=== PATIENT | male | born 1935 ===

== ENCOUNTER 2017-12-29 16:52 | Inpatient (IN) | payer MEDICARE ==
[2017-12-29 16:52] VITALS: BMI 27.4
[2017-12-29] MEDS ORDERED: Albuterol-Ipratrop 3 mg / 0.5 (3 ml) UD INH STA ×2 (17:27→17:32)
[2017-12-29] MEDS ORDERED: Sodium Chloride 0.9% 1,000 ML IV ONE (17:30)
[2017-12-29] MEDS ORDERED: Albuterol-Ipratrop 3 mg / 0.5 (3 ml) UD IH STA (17:32)
--- NOTE | 2017-12-29 17:35 | ED PDOC ---
HPI: SOB/CHF/COPD Time Seen by Provider: 12/29/17 17:08 Chief Complaint (Nursing): Shortness Of Breath Chief Complaint (Provider): Cough History Per: Patient, Family History/Exam Limitations: no limitations Onset/Duration Of Symptoms: Days (2) Current Symptoms Are (Timing): Still Present Additional Complaint(s): Pt. with cough, nasal congestion, runny nose, weakness all over. Dyspnea. Seen by clinic not around here and given zpak and inhaler. No improvement so came to the ED. Pt. with no nausea, vomit, diarrhea. No abd pain. Has increased urination. No burning. No chest pain. Past Medical History Vital Signs: Last Vital Signs Temp 100.8 F H 12/29/17 16:58 Pulse 107 H 12/29/17 16:58 Resp 22 12/29/17 16:58 BP 149/93 H 12/29/17 16:58 Pulse Ox 100 12/29/17 17:36 - Medical History PMH: Anxiety, CVA, Depression, HTN, Hypercholesterolemia - Family History Family History: States: Unknown Family Hx - Home Medications Home Medications: Ambulatory Orders Medication Instructions Recorded Albuterol Sulfate [Albuterol 3 ml IH Q4H PRN 12/29/17 Sulfate] Aspirin [Ecotrin] 81 mg PO DAILY 12/29/17 Azithromycin [Zithromax] 250 mg PO ASDIR 12/29/17 Cyanocobalamin [Vitamin B12 1000 1,000 mcg IM Q30D 12/29/17 mcg/ml Inj] Lisinopril/Hydrochlorothiazide 1 tab PO DAILY 12/29/17 [Lisinopril-Hctz 20-25 mg Tab] PARoxetine [Paxil] 20 mg PO DAILY 12/29/17 Simvastatin [Zocor] 40 mg PO HS 12/29/17 diltiaZEM CD [Cardizem CD] 300 mg PO DAILY 12/29/17 - Allergies Allergies/Adverse Reactions: Allergies Allergy/AdvReac Type Severity Reaction Status Date / Time No Known Allergies Allergy Verified 12/29/17 17:03 Review of Systems ROS Statement: Except As Marked, All Systems Reviewed And Found Negative Constitutional: Positive for: Weakness ENT: Positive for: Nose Pain, Nose Discharge, Nose Congestion Respiratory: Positive for: Cough, Shortness of Breath, Wheezing Genitourinary Male: Positive for: Frequency. Negative for: Dysuria Neurological: Positive for: Weakness Physical Exam - Reviewed Nursing Documentation Reviewed: Yes Vital Signs Reviewed: Yes - Physical Exam Appears: Positive for: Uncomfortable Head Exam: Positive for: ATRAUMATIC, NORMAL INSPECTION, NORMOCEPHALIC Skin: Positive for: Normal Color, Warm, DRY Eye Exam: Positive for: EOMI, Normal appearance, PERRL ENT: Positive for: Nasal Congestion Neck: Positive for: Normal, Painless ROM, Supple Cardiovascular/Chest: Positive for: Regular Rate, Rhythm Respiratory: Positive for: Decreased Breath Sounds, Wheezing (diffuse). Negative for: Accessory Muscle Use Gastrointestinal/Abdominal: Positive for: Normal Exam, Bowel Sounds, Soft. Negative for: Tenderness Back: Positive for: Normal Inspection. Negative for: L CVA Tenderness, R CVA Tenderness Extremity: Positive for: Normal ROM. 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 Negative for: Motor/Sensory Deficits - Laboratory Results Result Diagrams: 12/29/17 17:35 12/29/17 17:35 Interpretation Of Abn Labs: 13.8 wbc, 2.9 K - ECG ECG: Positive for: Interpreted By Me, Viewed By Me ECG Rhythm: Positive for: Nonspecific Changes O2 Sat by Pulse Oximetry: 100 Pulse Ox Interpretation: Normal - Radiology X-Ray: Interpreted by Me, Viewed By Me X-Ray Interpretation: No Acute Disease - Progress ED Course And Treament: 1944: Getting better. Will need admit. Clinical pneumonia, sepsis. Spoke with Dr. Sparks. Will admit. - Critical Care Total Time (In Min): 30 Documented Critical Care: Time excludes all time spent performint seperately billable procedures Disposition - Clinical Impression Clinical Impression: Dehydration, Pneumonia, Sepsis, Hypokalemia - Patient ED Disposition Is Patient to be Admitted: Yes Counseled Patient/Family Regarding: Studies Performed, Diagnosis - Disposition Disposition Time: 19:45 Condition: FAIR - Pt Status Changed To: Hospital Disposition Of: Inpatient - Admit Certification Admit to Inpatient:: After my assessment, the patient will require hospitalization for at least two midnights. This is because of the severity of symptoms shown, intensity of services needed, and/or the medical risk in this patient being treated as an outpatient. - POA Present On Arrival: None Core Measure Indicators: Pneumonia
[2017-12-29] MEDS ORDERED: Albuterol-Ipratrop 3 mg / 0.5 (3 ml) UD ONE ×2 (17:45→18:19)
[2017-12-29 17:55] LABS: BASO # 0.1 K/uL (0.0-0.2); BASO % 0.4 % (0.0-2.0); EOS % 0.1 % (0.0-4.0); HEMOGLOBIN 14.1 g/dL (12.0-18.0); LYMPH # 1.9 K/uL (1.0-4.3); LYMPH % 13.4 % (20.0-40.0); MEAN CELL VOLUME 90.8 fl (80.0-94.0); MEAN CORPUSCULAR HEMOGLOBIN 30.1 pg (27.0-31.0); MEAN CORPUSCULAR HGB CONC 33.2 g/dL (33.0-37.0); MEAN PLATELET VOLUME 8.7 fl (7.2-11.7); MONO # 1.7 K/uL (0.0-0.8); MONO % 12.2 % (0.0-10.0); NEUT # 10.3 K/uL (1.8-7.0); NEUT % 73.9 % (50.0-75.0); NRBC % 0.2 % (0.0-0.0); RBC 4.67 Mil/uL (4.40-5.90); RED CELL DISTRIBUTION WIDTH 14.2 % (11.5-14.5); WHITE BLOOD COUNT 13.9 K/uL (4.8-10.8)
[2017-12-29 18:11] LABS: INR 1.1 (0.9-1.2); PARTIAL THROMBOPLASTIN TIME 34.3 Seconds (25.6-37.1); PROTHROMBIN TIME 11.7 Seconds (9.8-13.1)
[2017-12-29 18:23] LABS: ALB/GLOB RATIO 1.3 (1.0-2.1); ALBUMIN 3.8 g/dL (3.5-5.0); CALCIUM 8.6 mg/dL (8.4-10.2); MAGNESIUM 1.7 MG/DL (1.6-2.3)
[2017-12-29 18:32] LABS: TROPONIN I 0.028 ng/mL (0.00-0.120)
[2017-12-29 18:49] LABS: ABG ALLEN TEST YES; ARTERIAL BLOOD GAS HCO3 31.3 mmol/L (21-28); ARTERIAL BLOOD GAS O2 SAT 98.8 % (95-98); ARTERIAL BLOOD GAS PCO2 39 mm/Hg (35-45); ARTERIAL BLOOD GAS PH 7.52 (7.35-7.45); ARTERIAL BLOOD GAS PO2 69 mm/Hg (80-100)
[2017-12-29] MEDS: Potassium Chloride 20 mEq ER Tab PO SCH ×3 (19:37→20:50)
[2017-12-29] MEDS ORDERED: cefTRIAXone (Rocephin) 1 gm Inj IV ONE (19:45)
[2017-12-29] MEDS ORDERED: Potassium Chloride 20 mEq ER Tab PO ONE (19:47)
[2017-12-29] MEDS ORDERED: Magnesium Sulfate 2 gm/50 ml 0 GM/0 ML BAG ONE (19:47)
[2017-12-29] MEDS: Magnesium Sulfate 2 gm/50 ml 2 GM/50 ML BAG IV ONE ×2 (19:53→20:50)
[2017-12-29] MEDS ORDERED: Albuterol-Ipratrop 3 mg / 0.5 (3 ml) UD INH PRN (20:04)
--- NOTE | 2017-12-29 20:10 | CP.PCM.HP ---
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 Patient was sent to the hospital by his PCP Dr. England because patient refused to go to the office. In the ER, patient was mildly febrile 100.8, tachy 107, WBC appx 13K , with audible wheeze, nonproductive cough, no obvious pna on CXR. K was 2.9, this was repleted and Mg 1.7 which was repleted as well. Currently patient is on 2L NC and saturating about 95% but desaturates with speaking to 89-90. Patient to be admitted to telemetry for sepsis, secondary to clinical pneumonia , and hypokalemia. ROS: per HPI all other systems reviewed and negative PCP: Dr. England PMSH: HTN, HLD, depression, no known hx of COPD or asthma, however used to work in a very smoke heavy environment, Prostate seeding? FH: denies SH: denies tobacco, ETOH, IVDU Meds as below NKDA Present on Admission - Present on Admission Any Indicators Present on Admission: No Past Patient History - Infectious Disease Hx of Infectious Diseases: None - Past Medical History & Family History Past Medical History?: Yes - Past Social History Smoking Status: Never Smoked - CARDIAC Hx Hypercholesterolemia: Yes Hx Hypertension: Yes - NEUROLOGICAL Hx Neurological Disorder: Yes HX Cerebrovascular Accident: Yes - HEENT Hx HEENT Problems: Yes Hx Cataracts: Yes - HEMATOLOGICAL/ONCOLOGICAL Hx Blood Disorders: Yes Hx Cancer: Yes (prostate) - MUSCULOSKELETAL/RHEUMATOLOGICAL Hx Falls: No - GENITOURINARY/GYNECOLOGICAL Hx Genitourinary Disorders: Yes Hx Prostate Cancer: Yes - PSYCHIATRIC Hx Anxiety: Yes Hx Depression: Yes - SURGICAL HISTORY Hx Surgeries: Yes Hx Cataract Extraction: Yes (LEFT EYE WITH IOLI) Other/Comment: PROSTATE SEED IMPLANT - ANESTHESIA Hx Anesthesia: Yes Hx Anesthesia Reactions: No Hx Malignant Hyperthermia: No Meds Allergies/Adverse Reactions: Allergies Allergy/AdvReac Type Severity Reaction Status Date / Time No Known Allergies Allergy Verified 12/29/17 17:03 Physical Exam - Constitutional Appears: Non-toxic, No Acute Distress - Head Exam Head Exam: ATRAUMATIC, NORMOCEPHALIC - Eye Exam Eye Exam: EOMI, Normal appearance, PERRL - ENT Exam ENT Exam: Mucous Membranes Moist, Normal Oropharynx - Respiratory Exam Respiratory Exam: Wheezes, NORMAL BREATHING PATTERN. absent: Rales, Respiratory Distress, Stridor - Cardiovascular Exam Cardiovascular Exam: RRR, +S1, +S2 - GI/Abdominal Exam GI & Abdominal Exam: Normal Bowel Sounds, Soft. absent: Mass, Organomegaly, Tenderness - Extremities Exam Extremities exam: Positive for: normal capillary refill, pedal pulses present. Negative for: calf tenderness - Back Exam Back exam: absent: CVA tenderness (L), CVA tenderness (R) - Neurological Exam Neurological exam: Alert, Oriented x3 - Psychiatric Exam Psychiatric exam: Normal Affect, Normal Mood - Skin Skin Exam: Dry, Normal Color, Warm Results - Vital Signs Recent Vital Signs: Last Vital Signs Temp 100.8 F H 12/29/17 16:58 Pulse 107 H 12/29/17 16:58 Resp 22 12/29/17 16:58 BP 149/93 H 12/29/17 16:58 Pulse Ox 100 12/29/17 19:46 - Labs Result Diagrams: 12/29/17 17:35 12/29/17 17:35 Labs: Laboratory Results - last 24 hr 12/29/17 12/29/17 12/29/17 17:35 17:35 17:35 WBC 13.9 H RBC 4.67 Hgb 14.1 Hct 42.4 MCV 90.8 MCH 30.1 MCHC 33.2 RDW 14.2 Plt Count 187 MPV 8.7 Neut % (Auto) 73.9 Lymph % (Auto) 13.4 L Otoe % (Auto) 12.2 H Eos % (Auto) 0.1 Baso % (Auto) 0.4 Neut # (Auto) 10.3 H Lymph # (Auto) 1.9 Otoe # (Auto) 1.7 H Eos # (Auto) 0.0 Baso # (Auto) 0.1 PT 11.7 INR 1.1 APTT 34.3 pCO2 pO2 HCO3 ABG pH ABG Total CO2 ABG O2 Saturation ABG Base Excess Yobani Test ABG Potassium A-a O2 Difference Glucose Lactate FiO2 Sodium 140 Potassium 2.9 L Chloride 99 Carbon Dioxide 32 H Anion Gap 12 BUN 26 H Creatinine 1.5 Est GFR ( Amer) 54 Est GFR (Non-Af Amer) 45 Random Glucose 126 H Calcium 8.6 Phosphorus 2.7 Magnesium 1.7 Total Bilirubin 0.6 AST 44 ALT 38 Alkaline Phosphatase 77 Troponin I 0.0280 NT-Pro-B Natriuret Pep 331 Total Protein 6.6 Albumin 3.8 Globulin 2.8 Albumin/Globulin Ratio 1.3 Arterial Blood Potassium Influenza Typ A,B (EIA) 12/29/17 12/29/17 17:35 18:40 WBC RBC Hgb Hct MCV MCH MCHC RDW Plt Count MPV Neut % (Auto) Lymph % (Auto) Otoe % (Auto) Eos % (Auto) Baso % (Auto) Neut # (Auto) Lymph # (Auto) Otoe # (Auto) Eos # (Auto) Baso # (Auto) PT INR APTT pCO2 39 pO2 69 L HCO3 31.3 H ABG pH 7.52 H ABG Total CO2 33.0 H ABG O2 Saturation 98.8 H ABG Base Excess 8.3 H Yobani Test Yes ABG Potassium 2.8 L A-a O2 Difference 139.0 Glucose 140 H Lactate 0.8 FiO2 36.0 Sodium 138.0 Potassium Chloride 100.0 Carbon Dioxide Anion Gap BUN Creatinine Est GFR ( Amer) Est GFR (Non-Af Amer) Random Glucose Calcium Phosphorus Magnesium Total Bilirubin AST ALT Alkaline Phosphatase Troponin I NT-Pro-B Natriuret Pep Total Protein Albumin Globulin Albumin/Globulin Ratio Arterial Blood Potassium 2.8 L Influenza Typ A,B (EIA) Negative for flu a/b Assessment & Plan - Assessment and Plan (Free Text) Plan: 82M PMH HTN, HLD, depression, no known hx of COPD or asthma, however 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 Patient was sent to the hospital by his PCP Dr. England because patient refused to go to the office. In the ER, patient was mildly febrile 100.8, tachy 107, WBC appx 13K , with audible wheeze, nonproductive cough, no obvious pna on CXR. K was 2.9, this was repleted and Mg 1.7 which was repleted as well. Currently patient is on 2L NC and saturating about 95% but desaturates with speaking to 89-90. Patient to be admitted to telemetry for sepsis, secondary to clinical pneumonia , and hypokalemia. Sepsis Clinical Pneumonia VS. Bronchitis with mild respiratory insufficiency patient presented with dyspnea, cough, mild fever, tachy 107, WBC 13K on 2L NC saturating 95% monitor closely continue bronchodilators continue Ceftriaxone and Azithromycin initiated 12/29/17 Hypokalemia K 2.9 received 60 mEq in ER Mg 1.7, received 2 gm in ER as well Hyperlipidemia Simvastatin 40 mg PO HS Aspirin 81 mg PO DAILY Hypertension Lisinopril/Hydrochlorothiazide 1 tab PO DAILY diltiaZEM CD 300 mg PO DAILY Depression [id number] mg PO DAILY VTE ppx Lovenox
[2017-12-29] MEDS ORDERED: cefTRIAXone (Rocephin) 1 gm Inj ONE (20:32)
[2017-12-29] MEDS ORDERED: Magnesium Sulfate 2 gm/50 ml 2 GM/50 ML BAG ONE (20:32)
[2017-12-29] MEDS ORDERED: Azithromycin 500 MG in Sodium Chloride 0.9% 250 ML IVPB STA (20:38)
[2017-12-29 22:29] LABS: URINE BILIRUBIN NEGATIVE (NEGATIVE); URINE BLOOD NEGATIVE (NEGATIVE); URINE CLARITY SLIGHTY-CLOUDY (Clear); URINE COLOR YELLOW (YELLOW); URINE GLUCOSE (UA) NEG (Normal); URINE HYALINE CAST 0-2 /hpf (0-2); URINE LEUKOCYTE ESTERASE NEG Leu/uL (Negative); URINE NITRATE NEGATIVE (NEGATIVE); URINE PROTEIN >=500 mg/dL (NEGATIVE)
--- NOTE | 2017-12-30 04:29 | CP.PCM.PCO ---
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 Follow electrolytes.
[2017-12-30] MEDS: Potassium CL 10 MEQ/50 ML 50 ML IVPB SCH ×4 (05:09→11:30)
[2017-12-30] MEDS: Albuterol-Ipratrop 3 mg / 0.5 (3 ml) UD INH SCH ×6 (05:09→19:22)
[2017-12-30 05:46] VITALS: RESP 18
[2017-12-30 05:51] LABS: HEMOGLOBIN 14.5 g/dL (12.0-18.0); MEAN CELL VOLUME 90.6 fl (80.0-94.0); MEAN CORPUSCULAR HEMOGLOBIN 30.2 pg (27.0-31.0); MEAN CORPUSCULAR HGB CONC 33.3 g/dL (33.0-37.0); RBC 4.81 Mil/uL (4.40-5.90); RED CELL DISTRIBUTION WIDTH 14.6 % (11.5-14.5); WHITE BLOOD COUNT 10.1 K/uL (4.8-10.8)
[2017-12-30 06:27] LABS: CALCIUM 8.7 mg/dL (8.4-10.2)
[2017-12-30] MEDS ORDERED: Patient's Own Med (Lisinopril/Hydrochlorothiazide [Lisinopril-Hctz 20-25 Mg Tab] 1 TAB) PO SCH (09:00)
[2017-12-30] MEDS: diltiaZEM 300 mg/24 Hours CD Cap PO SCH (09:07)
[2017-12-30] MEDS: Enoxaparin 40 mg Syringe SC SCH (09:08)
--- NOTE | 2017-12-30 10:01 | RAD ---
HISTORY: Sepsis Patient COMPARISON: Chest radiograph dated 01/25/2017. FINDINGS: LUNGS: Stable chronic prominence of the bilateral interstitial markings. No focal consolidation. PLEURA: No significant pleural effusion identified, no pneumothorax apparent. CARDIOVASCULAR: Atherosclerotic aortic calcifications. Cardiomediastinal silhouette stably prominent al. OSSEOUS STRUCTURES: Unchanged. VISUALIZED UPPER ABDOMEN: Normal. OTHER FINDINGS: None. IMPRESSION: Stable chronic prominence of the bilateral interstitial markings. No focal consolidation or pleural effusion.
--- NOTE | 2017-12-30 11:00 | CP.PCM.PN ---
Subjective - Date & Time of Evaluation Date of Evaluation: 12/30/17 Time of Evaluation: 10:59 - Subjective Subjective: STATES HE FEELS IMPROVING CONTINUES TO HAVE O2 REQUIREMENT, NOT YET AT BASELINE HOWEVER IMPROVED HAS NEB AT HOME HD STABLE NAD Objective - Vital Signs/Intake and Output Vital Signs (last 24 hours): Temp Pulse Resp BP Pulse Ox 97.5 F L 87 18 168/93 H 95 12/30/17 08:00 12/30/17 09:12 12/30/17 08:00 12/30/17 09:12 12/30/17 08:00 - Medications Medications: Current Medications Acetaminophen (Tylenol 325mg Tab) 975 mg PO ONCE PRN PRN Reason: Fever >100.4 F Albuterol/Ipratropium (Duoneb 3 Mg/0.5 Mg (3 Ml) Ud) 3 ml INH RQ4 PRN PRN Reason: Shortness of Breath Albuterol/Ipratropium (Duoneb 3 Mg/0.5 Mg (3 Ml) Ud) 3 ml INH RQ4 [facility] Last Admin: 12/30/17 08:01 Dose: 3 ml Aspirin (Ecotrin) 81 mg PO DAILY [facility] Last Admin: 12/30/17 09:07 Dose: 81 mg Atorvastatin Calcium (Lipitor) 20 mg PO DAILY [facility] Last Admin: 12/30/17 09:08 Dose: 20 mg Azithromycin (Zithromax) 500 mg PO DAILY [facility] PRN Reason: Protocol Last Admin: 12/30/17 09:12 Dose: 500 mg Diltiazem HCl (Cardizem Cd) 300 mg PO DAILY [facility] Last Admin: 12/30/17 09:07 Dose: 300 mg Enoxaparin Sodium (Lovenox) 40 mg SC DAILY [facility] PRN Reason: Protocol Last Admin: 12/30/17 09:08 Dose: 40 mg Hydrochlorothiazide (Hydrodiuril) 25 mg PO DAILY [facility] Last Admin: 12/30/17 09:08 Dose: 25 mg Ceftriaxone Sodium 1 gm/ (Sodium Chloride) 100 mls @ 100 mls/hr IVPB DAILY [facility] PRN Reason: Protocol Last Admin: 12/30/17 09:11 Dose: 100 mls/hr Lisinopril (Zestril) 20 mg PO DAILY [facility] Last Admin: 12/30/17 09:12 Dose: 20 mg Paroxetine HCl (Paxil) 20 mg PO DAILY [facility] Last Admin: 12/30/17 09:10 Dose: 20 mg - Labs Labs: 12/30/17 05:08 12/30/17 05:08 PT 11.7 Seconds (9.8-13.1) 12/29/17 17:35 INR 1.1 (0.9-1.2) 12/29/17 17:35 APTT 34.3 Seconds (25.6-37.1) 12/29/17 17:35 - Constitutional Appears: Non-toxic, No Acute Distress - Head Exam Head Exam: ATRAUMATIC, NORMAL INSPECTION, NORMOCEPHALIC - Eye Exam Eye Exam: EOMI, Normal appearance, PERRL Pupil Exam: NORMAL ACCOMODATION - ENT Exam ENT Exam: Mucous Membranes Moist, Normal Oropharynx - Respiratory Exam Respiratory Exam: Wheezes, NORMAL BREATHING PATTERN - Cardiovascular Exam Cardiovascular Exam: RRR, +S1, +S2 - GI/Abdominal Exam GI & Abdominal Exam: Soft, Normal Bowel Sounds. 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 Patient was sent to the hospital by his PCP Dr. England because patient refused to go to the office. In the ER, patient was mildly febrile 100.8, tachy 107, WBC appx 13K , with audible wheeze, nonproductive cough, no obvious pna on CXR. K was 2.9, this was repleted and Mg 1.7 which was repleted as well. Currently patient is on 2L NC and saturating about 95% but desaturates with speaking to 89-90. Patient to be admitted to telemetry for sepsis, secondary to clinical pneumonia , and hypokalemia. Sepsis Clinical Pneumonia VS. Bronchitis with mild respiratory insufficiency patient presented with dyspnea, cough, mild fever, tachy 107, WBC 13K on 2L NC saturating 95%, still with O2 requirement, continue bronchodilators checking procalcitonin monitor closely continue bronchodilators continue Ceftriaxone and Azithromycin initiated 12/29/17 Hypokalemia K 2.9 -resolved today received 60 mEq in ER Mg 1.7, received 2 gm in ER as well Hyperlipidemia Simvastatin 40 mg PO HS Aspirin 81 mg PO DAILY Hypertension Lisinopril/Hydrochlorothiazide 1 tab PO DAILY diltiaZEM CD 300 mg PO DAILY Depression [id number] mg PO DAILY VTE ppx Lovenox
--- NOTE | 2017-12-30 11:23 | CARD ---
APPROVED REPORT EKG Measurement Heart [id number] [place] [id number] <Conclusion> Normal sinus rhythm Left axis deviation Inferior infarct, age undetermined Abnormal ECG
--- NOTE | 2017-12-30 11:29 | CARD ---
APPROVED REPORT EKG Measurement Heart [id number] <Conclusion> Normal sinus rhythm Left axis deviation Abnormal ECG
[2017-12-30] MEDS ORDERED: Metoprolol Succinate 25 mg XL Tab PO STA (13:26)
[2017-12-31] MEDS: Albuterol-Ipratrop 3 mg / 0.5 (3 ml) UD INH SCH ×6 (01:01→19:01)
--- NOTE | 2017-12-31 10:15 | CP.PCM.PN ---
Subjective - Date & Time of Evaluation Date of Evaluation: 12/31/17 Time of Evaluation: 10:08 - Subjective Subjective: continues to have audible wheezing and mild dyspnea with low O2 requirement HD STABLE NAD no toher complaints at this time Objective - Vital Signs/Intake and Output Vital Signs (last 24 hours): Temp Pulse Resp BP Pulse Ox 97.3 F L 71 18 157/80 H 96 12/31/17 07:55 12/31/17 07:55 12/31/17 07:55 12/31/17 07:55 12/31/17 07:55 - Medications Medications: Current Medications Acetaminophen (Tylenol 325mg Tab) 975 mg PO ONCE PRN PRN Reason: Fever >100.4 F Albuterol/Ipratropium (Duoneb 3 Mg/0.5 Mg (3 Ml) Ud) 3 ml INH RQ4 PRN PRN Reason: Shortness of Breath Albuterol/Ipratropium (Duoneb 3 Mg/0.5 Mg (3 Ml) Ud) 3 ml INH RQ4 [facility] Last Admin: 12/31/17 07:46 Dose: 3 ml Aspirin (Ecotrin) 81 mg PO DAILY [facility] Last Admin: 12/30/17 09:07 Dose: 81 mg Atorvastatin Calcium (Lipitor) 20 mg PO DAILY [facility] Last Admin: 12/30/17 09:08 Dose: 20 mg Diltiazem HCl (Cardizem Cd) 300 mg PO DAILY [facility] Last Admin: 12/30/17 09:07 Dose: 300 mg Enoxaparin Sodium (Lovenox) 40 mg SC DAILY [facility] PRN Reason: Protocol Last Admin: 12/30/17 09:08 Dose: 40 mg Hydrochlorothiazide (Hydrodiuril) 25 mg PO DAILY [facility] Last Admin: 12/30/17 09:08 Dose: 25 mg Lisinopril (Zestril) 20 mg PO DAILY [facility] Last Admin: 12/30/17 09:12 Dose: 20 mg Methylprednisolone (Solu-Medrol) 60 mg IVP Q12 [facility] Metoprolol Succinate (Toprol Xl) 25 mg PO DAILY [facility] Paroxetine HCl (Paxil) 20 mg PO DAILY [facility] Last Admin: 12/30/17 09:10 Dose: 20 mg - Labs Labs: 12/30/17 05:08 12/30/17 05:08 PT 11.7 Seconds (9.8-13.1) 12/29/17 17:35 INR 1.1 (0.9-1.2) 12/29/17 17:35 APTT 34.3 Seconds (25.6-37.1) 12/29/17 17:35 - Constitutional Appears: Non-toxic, No Acute Distress - Head Exam Head Exam: ATRAUMATIC - Eye Exam Eye Exam: EOMI, Normal appearance Pupil Exam: PERRL - ENT Exam ENT Exam: Mucous Membranes Moist, Normal Exam - Respiratory Exam Respiratory Exam: Wheezes, NORMAL BREATHING PATTERN - Cardiovascular Exam Cardiovascular Exam: RRR, +S1, +S2 - GI/Abdominal Exam GI & Abdominal Exam: Soft, Normal Bowel Sounds. 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 Patient was sent to the hospital by his PCP Dr. England because patient refused to go to the office. In the ER, patient was mildly febrile 100.8, tachy 107, WBC appx 13K , with audible wheeze, nonproductive cough, no obvious pna on CXR. K was 2.9, this was repleted and Mg 1.7 which was repleted as well. Currently patient is on 2L NC and saturating about 95% but desaturates with speaking to 89-90. Patient to be admitted to telemetry for sepsis, secondary to clinical pneumonia , and hypokalemia. Sepsis Clinical Pneumonia VS. Bronchitis with mild respiratory insufficiency patient presented with dyspnea, cough, mild fever, tachy 107, WBC 13K on 2L NC saturating 95%, still with O2 requirement, continue bronchodilators PROCALCITONIN NEGATIVE. likely viral bronchitis. monitor closely continue bronchodilators continue Ceftriaxone and Azithromycin initiated 12/29/17 - discontinue. Hypokalemia resolved received 60 mEq in ER Mg 1.7, received 2 gm in ER as well Hyperlipidemia Simvastatin 40 mg PO HS Aspirin 81 mg PO DAILY Hypertension Lisinopril/Hydrochlorothiazide 1 tab PO DAILY diltiaZEM CD 300 mg PO DAILY added Toprol for HR and BP Depression [id number] mg PO DAILY VTE ppx Lovenox
[2017-12-31] MEDS: diltiaZEM 300 mg/24 Hours CD Cap PO SCH (10:18)
[2017-12-31] MEDS: Enoxaparin 40 mg Syringe SC SCH (10:20)
[2017-12-31] MEDS: Metoprolol Succinate 25 mg XL Tab PO SCH (10:21)
[2018-01-01] MEDS: Albuterol-Ipratrop 3 mg / 0.5 (3 ml) UD INH SCH ×4 (00:25→11:00)
[2018-01-01 08:22] VITALS: PULSE 75; TEMP 97.3; O2SAT 97
[2018-01-01] MEDS: diltiaZEM 300 mg/24 Hours CD Cap PO SCH (09:07)
[2018-01-01] MEDS: Metoprolol Succinate 25 mg XL Tab PO SCH (09:09)
[2018-01-01] MEDS: Enoxaparin 40 mg Syringe SC SCH (09:10)
[2018-01-01 09:11] VITALS: BP 158/81
--- NOTE | 2018-01-01 09:51 | CP.PCM.DIS ---
Provider - Provider Date of Admission: 12/29/17 19:42 Attending physician: Anastasiia Sparks DO Time Spent in preparation of Discharge (in minutes): 30 Hospital Course - Lab Results Lab Results: Micro Results 12/29/17 17:35 Blood Blood Culture - Preliminary NO GROWTH AFTER 48 HOURS 12/29/17 17:40 Blood Blood Culture - Preliminary NO GROWTH AFTER 48 HOURS 12/29/17 07:42 Urine,Clean Catch Urine Culture - Final No Growth (<1,000 CFU/ML) Most Recent Lab Values WBC 10.1 K/uL (4.8-10.8) 12/30/17 05:08 RBC 4.81 Mil/uL (4.40-5.90) 12/30/17 05:08 Hgb 14.5 g/dL (12.0-18.0) 12/30/17 05:08 Hct 43.6 % (35.0-51.0) 12/30/17 05:08 MCV 90.6 fl (80.0-94.0) 12/30/17 05:08 MCH 30.2 pg (27.0-31.0) 12/30/17 05:08 MCHC 33.3 g/dL (33.0-37.0) 12/30/17 05:08 RDW 14.6 % (11.5-14.5) H 12/30/17 05:08 Plt Count 202 K/uL (130-400) 12/30/17 05:08 MPV 8.7 fl (7.2-11.7) 12/29/17 17:35 Neut % (Auto) 73.9 % (50.0-75.0) 12/29/17 17:35 Lymph % (Auto) 13.4 % (20.0-40.0) L 12/29/17 17:35 [place] % (Auto) 12.2 % (0.0-10.0) H 12/29/17 17:35 Eos % (Auto) 0.1 % (0.0-4.0) 12/29/17 17:35 Baso % (Auto) 0.4 % (0.0-2.0) 12/29/17 17:35 Neut # (Auto) 10.3 K/uL (1.8-7.0) H 12/29/17 17:35 Lymph # (Auto) 1.9 K/uL (1.0-4.3) 12/29/17 17:35 [place] # (Auto) 1.7 K/uL (0.0-0.8) H 12/29/17 17:35 Eos # (Auto) 0.0 K/uL (0.0-0.7) 12/29/17 17:35 Baso # (Auto) 0.1 K/uL (0.0-0.2) 12/29/17 17:35 PT 11.7 Seconds (9.8-13.1) 12/29/17 17:35 INR 1.1 (0.9-1.2) 12/29/17 17:35 APTT 34.3 Seconds (25.6-37.1) 12/29/17 17:35 pCO2 39 mm/Hg (35-45) 12/29/17 18:40 pO2 69 mm/Hg (80-100) L 12/29/17 18:40 HCO3 31.3 mmol/L (21-28) H 12/29/17 18:40 ABG pH 7.52 (7.35-7.45) H 12/29/17 18:40 ABG Total CO2 33.0 mmol/L (22-28) H 12/29/17 18:40 ABG O2 Saturation 98.8 % (95-98) H 12/29/17 18:40 ABG Base Excess 8.3 mmol/L (-2.0-3.0) H 12/29/17 18:40 Yobani Test Yes 12/29/17 18:40 ABG Potassium 2.8 mmol/L (3.6-5.2) L 12/29/17 18:40 A-a O2 Difference 139.0 mm/Hg 12/29/17 18:40 Sodium 138.0 mmol/L (132-148) 12/29/17 18:40 Chloride 100.0 mmol/L (98-107) 12/29/17 18:40 Glucose 140 mg/dL (75-110) H 12/29/17 18:40 Lactate 0.8 mmol/L (0.7-2.1) 12/29/17 18:40 FiO2 36.0 % 12/29/17 18:40 Sodium 143 mmol/l (132-148) 12/30/17 05:08 Potassium 3.7 MMOL/L (3.6-5.0) 12/30/17 05:08 Chloride 104 mmol/L (98-107) 12/30/17 05:08 Carbon Dioxide 32 mmol/L (22-30) H 12/30/17 05:08 Anion Gap 11 (10-20) 12/30/17 05:08 BUN 27 mg/dl (9-20) H 12/30/17 05:08 Creatinine 1.4 mg/dl (0.8-1.5) 12/30/17 05:08 Est GFR ( Amer) 59 12/30/17 05:08 Est GFR (Non-Af Amer) 49 12/30/17 05:08 POC Glucose (mg/dL) 196 mg/dL (65-110) H 12/29/17 21:05 Random Glucose 177 mg/dL (75-110) H 12/30/17 05:08 Calcium 8.7 mg/dL (8.4-10.2) 12/30/17 05:08 Phosphorus 2.7 mg/dl (2.5-4.5) 12/29/17 17:35 Magnesium 1.7 MG/DL (1.6-2.3) 12/29/17 17:35 Total Bilirubin 0.6 mg/dl (0.2-1.3) 12/29/17 17:35 AST 44 U/L (17-59) 12/29/17 17:35 ALT 38 U/L (21-72) 12/29/17 17:35 Alkaline Phosphatase 77 U/L (38-126) 12/29/17 17:35 Troponin I 0.0280 ng/mL (0.00-0.120) 12/29/17 17:35 NT-Pro-B Natriuret Pep 331 pg/ml (0-900) 12/29/17 17:35 Total Protein 6.6 G/DL (6.3-8.2) 12/29/17 17:35 Albumin 3.8 g/dL (3.5-5.0) 12/29/17 17:35 Globulin 2.8 gm/dL (2.2-3.9) 12/29/17 17:35 Albumin/Globulin Ratio 1.3 (1.0-2.1) 12/29/17 17:35 Procalcitonin 0.06 NG/ML (0.19-0.49) L 12/30/17 11:54 Arterial Blood Potassium 2.8 mmol/L (3.6-5.2) L 12/29/17 18:40 Urine Color Yellow (YELLOW) 12/29/17 19:23 Urine Clarity Slighty-cloudy (Clear) 12/29/17 19:23 Urine pH 6.0 (5.0-8.0) 12/29/17 19:23 Ur Specific [place] 1.027 (1.003-1.030) 12/29/17 19:23 Urine Protein >=500 mg/dL (NEGATIVE) 12/29/17 19:23 Urine Glucose (UA) Neg mg/dL (Normal) 12/29/17 19: Urine Ketones Negative mg/dL (NEGATIVE) 12/29/17 19:23 Urine Blood Negative (NEGATIVE) 12/29/17 19:23 Urine Nitrate Negative (NEGATIVE) 12/29/17 19:23 Urine Bilirubin Negative (NEGATIVE) 12/29/17 19:23 Urine Urobilinogen 4.0 mg/dL (0.2-1.0) 12/29/17 19:23 Ur Leukocyte Esterase Neg Anh/uL (Negative) 12/29/17 19:23 Urine RBC (Auto) 2 /hpf (0-3) 12/29/17 19:23 Urine Microscopic WBC 2 /hpf (0-5) 12/29/17 19:23 Hyaline Casts 0-2 /hpf (0-2) 12/29/17 19:23 Influenza Typ A,B (EIA) Negative for flu a/b (NEGATIVE) 12/29/17 17:35 - Hospital Course Hospital Course: 82M PMH HTN, HLD, depression, no known hx of COPD or asthma, however 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 Patient was sent to the hospital by his PCP Dr. nEgland because patient refused to go to the office. In the ER, patient was mildly febrile 100.8, tachy 107, WBC appx 13K , with audible wheeze, nonproductive cough, no obvious pna on CXR. K was 2.9, this was repleted and Mg 1.7 which was repleted as well. Currently patient is on 2L NC and saturating about 95% but desaturates with speaking to 89-90. Patient to be admitted to telemetry for sepsis, secondary to clinical pneumonia , and hypokalemia. PT IMPROVED TODAY, WHEEZING NEARLY RESOLVED. STABLE FOR DISCHARGE HOME WITH FOLLOW UP PCP IN ONE WEEK. Sepsis Clinical Pneumonia VS. Bronchitis with mild respiratory insufficiency patient presented with dyspnea, cough, mild fever, tachy 107, WBC 13K IMPROVED TODAY, STABLE TO DISCHARGE HOME PROCALCITONIN NEGATIVE. likely viral bronchitis. monitor closely continue bronchodilators continue Ceftriaxone and Azithromycin initiated 12/29/17 - discontinue. patient improved today Hypokalemia resolved Hyperlipidemia Simvastatin 40 mg PO HS Aspirin 81 mg PO DAILY Hypertension Lisinopril/Hydrochlorothiazide 1 tab PO DAILY diltiaZEM CD 300 mg PO DAILY added Toprol for HR and BP Depression PARoxetine 20 mg PO DAILY VTE ppx Lovenox Discharge Exam - Head Exam Additional comments: GEN: WDWN, ALERT, COOPERATIVE HEENT: NCAT, PERRL, EOMI HEART: RRR, +S1S2, NO MRG LUNG: MILD WHEEZING, IMPROVED ABD: SOFT, NT, ND, NO HSM, NO MASSES EXT: NORMAL PEDAL PULSES, GOOD CAPILLARY REFILL NEURO: AAOX3, STRENGTH EQUAL BILATERAL UPPER AND LOWER EXTREMITIES SKIN: WARM, DRY PSYCH: NORMAL MOOD, NORMAL AFFECT Discharge Plan - Discharge Medications Prescriptions: Albuterol/Ipratropium [Duoneb 3 mg/0.5 mg (3 ml) UD] 3 ml INH RQ4 #30 neb diltiaZEM CD [Cardizem CD] 300 mg PO DAILY #30 cap Lisinopril/Hydrochlorothiazide [Lisinopril-Hctz 20-25 mg Tab] 1 tab PO DAILY # 30 tablet Metoprolol Succinate [Toprol XL] 25 mg PO DAILY #30 tab Simvastatin [Zocor] 40 mg PO HS #30 tablet - Follow Up Plan Condition: FAIR Disposition: HOME/ ROUTINE Instructions: Hypertension (DC), Hypertension (GEN)
== END 2018-01-01 11:25 | disposition home or self-care (01) | DRG 871 ==
LOC: H.ER 16:52 → H.ERHOLD 19:42 → H.TEL 22:35
PROVIDERS: ADMIT Student in an Organized Health Care Education/Training Program; ATTEND Student in an Organized Health Care Education/Training Program
PROC: 3E0F7GC Introduction of Other Therapeutic Substance into Respiratory Tract, Via Natural or Artificial Opening (ICD-10-PCS; principal; 2017-12-30)
DX: A41.9 Sepsis, unspecified organism (principal); J18.9 Pneumonia, unspecified organism; E86.0 Dehydration; J44.0 Chronic obstructive pulmonary disease with (acute) lower respiratory infection; E78.00 Pure hypercholesterolemia, unspecified; E78.5 Hyperlipidemia, unspecified; E87.6 Hypokalemia; F32.9 Major depressive disorder, single episode, unspecified; I10 Essential (primary) hypertension; Z79.82 Long term (current) use of aspirin; Z79.899 Other long term (current) drug therapy; Z85.46 Personal history of malignant neoplasm of prostate; Z86.73 Personal history of transient ischemic attack (TIA), and cerebral infarction without residual deficits; F41.9 Anxiety disorder, unspecified

== ENCOUNTER 2018-03-26 15:54 | Emergency (ER) | payer MEDICARE ==
[2018-03-26 15:54] VITALS: BMI 27.4
[2018-03-26 16:03] VITALS: RESP 18; TEMP 98.2; O2SAT 97
--- NOTE | 2018-03-26 16:41 | ED PDOC ---
HPI: Chest Pain Time Seen by Provider: 03/26/18 16:15 Chief Complaint (Nursing): Chest Pain Chief Complaint (Provider): Chest Pain History Per: Patient History/Exam Limitations: no limitations Onset/Duration Of Symptoms: Days (x 1) Current Symptoms Are (Timing): Still Present Quality: Pressure Additional Complaint(s): 82 year old male with a history of HTN, high cholesterol, stroke and COPD presents to the ED complaining of left sided mild chest pressure since yesterday. Patient reports it resolved spontaneously yesterday but it returned today prompting the visit to the ED. Denies SOB, leg swelling, radiation of pain to shoulder, neck, or arm, nausea, vomiting, stomach pain, cough and fever. PMD: Dr. Bk England MD Past Medical History Reviewed: Historical Data, Nursing Documentation, Vital Signs Vital Signs: Last Vital Signs Temp 98.2 F 03/26/18 16:00 Pulse 75 03/26/18 16:20 Resp 18 03/26/18 16:00 BP 128/76 03/26/18 16:00 Pulse Ox 97 03/26/18 19:56 - Medical History PMH: Anxiety, Asthma, COPD, CVA, Depression, HTN, Hypercholesterolemia - Surgical History Surgical History: No Surg Hx - Family History Family History: States: Unknown Family Hx - Social History Current smoker - smoking cessation education provided: No Ex-Smoker (has not smoked in the last 12 months): No - Home Medications Home Medications: Ambulatory Orders Medication Instructions Recorded Albuterol Sulfate 3 ml IH Q4H PRN 12/29/17 Aspirin [Ecotrin] 81 mg PO DAILY 12/29/17 Cyanocobalamin [Vitamin B12 1000 1,000 mcg IM Q30D 12/29/17 mcg/ml Inj] PARoxetine [Paxil] 20 mg PO DAILY 12/29/17 Albuterol/Ipratropium [Duoneb 3 3 ml INH RQ4 #30 neb 01/01/18 mg/0.5 mg (3 ml) UD] Lisinopril/Hydrochlorothiazide 1 tab PO DAILY #30 tablet 01/01/18 [Lisinopril-Hctz 20-25 mg Tab] Metoprolol Succinate [Toprol XL] 25 mg PO DAILY #30 tab 01/01/18 Simvastatin [Zocor] 40 mg PO HS #30 tablet 01/01/18 diltiaZEM CD [Cardizem CD] 300 mg PO DAILY #30 cap 01/01/18 - Allergies Allergies/Adverse Reactions: Allergies Allergy/AdvReac Type Severity Reaction Status Date / Time No Known Allergies Allergy Verified 03/26/18 16:00 Review of Systems ROS Statement: Except As Marked, All Systems Reviewed And Found Negative Cardiovascular: Positive for: Chest Pain Physical Exam - Reviewed Nursing Documentation Reviewed: Yes Vital Signs Reviewed: Yes - Physical Exam Appears: Positive for: Non-toxic, No Acute Distress (obese) Head Exam: Positive for: ATRAUMATIC, NORMOCEPHALIC Skin: Positive for: Warm, Dry Eye Exam: Positive for: EOMI, PERRL ENT: Negative for: Pharyngeal Erythema Neck: Positive for: Painless ROM, Supple Cardiovascular/Chest: Positive for: Regular Rate, Rhythm, Chest Non Tender. Negative for: Murmur Respiratory: Positive for: Normal Breath Sounds. Negative for: Accessory Muscle Use, Wheezing, Respiratory Distress Gastrointestinal/Abdominal: Positive for: Soft. Negative for: Tenderness Back: Positive for: Normal Inspection. Negative for: Decreased ROM Extremity: Positive for: Normal ROM. Negative for: Deformity Lymphatic: Negative for: Adenopathy Neurologic/Psych: Positive for: Alert. Negative for: Motor/Sensory Deficits - Laboratory Results Result Diagrams: 03/26/18 17:26 03/26/18 17:26 - ECG ECG: Positive for: Interpreted By Me, Viewed By Nc ECG Rhythm: Positive for: Normal QRS, Normal ST Segment, Sinus Rhythm, 1st Degree Heart Block O2 Sat by Pulse Oximetry: 97 (RA) Pulse Ox Interpretation: Normal Medical Decision Making Medical Decision Making: Time; 16:15 Impression: chest pain Differential diagnoses include but are not limited to: CHF, pneumonia, and costochondritis. Initial Plan: --Blood type and screen --EKG --BNP --CMP --Magnesium --Phosphorus --TSH --troponin I --Urine dip --CBC with differentials --D Dimer --PTT --Prothrombin time --Chest x-ray --Angio Chest CT PE protocol --Potassium Chloride 40 meq PO EKG --normal sinus rhythm, normal QRS, normal ST segment, diffusely flattened T wave , 1st degree AV block. Rate is 73. Patient is having anginal chest pain with cardiac risk factors of hypertension, high cholesterol and obesity. He needs hospitalization to rule out ACS pending cardiac workup. Chest x-ray --shows no active disease. Time: 19:[address] FINDINGS: Pulmonary arteries: Unremarkable. No pulmonary embolism. Aorta: No acute findings. No thoracic aortic aneurysm. Lungs: Unremarkable. No mass. No consolidation. Pleural space: Unremarkable. No significant effusion. No pneumothorax. Heart: Unremarkable. No cardiomegaly. No significant pericardial effusion. No evidence of RV dysfunction. Bones/joints: Old right lateral rib fractures.No acute osseous findings. No dislocation. Soft tissues: Unremarkable. Lymph nodes: Unremarkable. No enlarged lymph nodes. IMPRESSION: No pulmonary embolism or other acute finding in the chest. Time: 19:55 --Upon reevaluation, patient feels better and agreed to go home. Advised he should be hospitalized to rule out ACS but patient declined. Will repeat Troponin and EKG now. If negative, will discharge with close follow up. 2030 Troponin negative. EKG similar to previous. DW pt and family findings, including low potassium (h/o low potassium) and possible dehydration with elevated BUN. 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 Advised to return to ER if chest pain recurs and pt still unable to follow up with PMD. Scribe Attestation: Documented by rTudy Zamorano, acting as a scribe for Adeline Carlisle MD Provider Scribe Attestation: All medical record entries made by the Scribe were at my direction and personally dictated by me. I have reviewed the chart and agree that the record accurately reflects my personal performance of the history, physical exam, medical decision making, and the department course for this patient. I have also personally directed, reviewed, and agree with the discharge instructions and disposition. 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 YOU MUST SEE YOUR DOCTOR TOMORROW FOR REEVALUATION OR RETURN TO ER. Instructions: Chest Pain Forms: [facility] (Guamanian) Print Language: IRANIAN
[2018-03-26 17:32] LABS: BASO # 0.1 K/uL (0.0-0.2); BASO % 0.9 % (0.0-2.0); EOS # 0.1 K/uL (0.0-0.7); EOS % 1.1 % (0.0-4.0); HEMOGLOBIN 13.3 g/dL (12.0-18.0); LYMPH # 2.5 K/uL (1.0-4.3); LYMPH % 26.8 % (20.0-40.0); MEAN CELL VOLUME 93.1 fl (80.0-94.0); MEAN CORPUSCULAR HGB CONC 34.4 g/dL (33.0-37.0); MEAN PLATELET VOLUME 8.4 fl (7.2-11.7); MONO # 0.8 K/uL (0.0-0.8); MONO % 8.3 % (0.0-10.0); NEUT # 5.9 K/uL (1.8-7.0); NEUT % 62.9 % (50.0-75.0); RBC 4.15 Mil/uL (4.40-5.90); RED CELL DISTRIBUTION WIDTH 15.7 % (11.5-14.5); WHITE BLOOD COUNT 9.5 K/uL (4.8-10.8)
[2018-03-26 17:40] LABS: ALB/GLOB RATIO 1.3 (1.0-2.1); ALBUMIN 3.5 g/dL (3.5-5.0); ALT/SGPT 39 U/L (21-72); AST/SGOT 28 U/L (17-59); BLOOD UREA NITROGEN 32 mg/dl (9-20); CALCIUM 9.1 mg/dL (8.4-10.2); GFR AFRICAN-AMERICAN 59; GFR NON-AFRICAN AMERICAN 49
[2018-03-26 17:41] VITALS: PULSE 75
[2018-03-26 17:44] LABS: PARTIAL THROMBOPLASTIN TIME 34.8 Seconds (25.6-37.1); PROTHROMBIN TIME 10.8 Seconds (9.8-13.1)
[2018-03-26] MEDS ORDERED: K-Lyte 25meq EF Tab PO ONE (17:47)
[2018-03-26 17:52] LABS: B-TYPE NATRIURETIC PEPTIDE 109 pg/ml (0-900)
[2018-03-26] MEDS ORDERED: Potassium Chloride 20 mEq ER Tab PO STA (18:03)
[2018-03-26] MEDS ORDERED: Sodium Chloride 0.9% 100 ML ONE (18:09)
[2018-03-26] MEDS ORDERED: Iodixanol 320 MG/ML 100 ML BOTTLE IV ONE (18:09)
[2018-03-26] MEDS ORDERED: Potassium Chloride 20 mEq ER Tab PO ONE (18:14)
--- NOTE | 2018-03-26 18:15 | RAD ---
HISTORY: chest pain COMPARISON: Chest radiograph dated 12/29/2017. TECHNIQUE: Chest PA and lateral FINDINGS: LUNGS: No active pulmonary disease. PLEURA: No significant pleural effusion identified. No pneumothorax apparent. CARDIOVASCULAR: Atherosclerotic aortic calcifications. Cardiomediastinal silhouette stably prominent. OSSEOUS STRUCTURES: Old right-sided rib fractures. Unchanged. VISUALIZED UPPER ABDOMEN: Normal. OTHER FINDINGS: None. IMPRESSION: No active disease.
[2018-03-26 20:50] VITALS: BP 136/74
--- NOTE | 2018-03-27 09:28 | CT ---
PROCEDURE: CT Chest with contrast (Pulmonary Angiogram) HISTORY: chest pain elevated dimer COMPARISON: Chest CT without contrast 06/04/2015. TECHNIQUE: Axial computed tomography images were obtained of the chest in the pulmonary arterial phase of enhancement. Coronal and sagittal reformatted images were created and reviewed. Intravenous contrast dose: Visipaque 320, 90 cc Radiation dose: Total exam DLP = 410.54 mGy-cm. This CT exam was performed using one or more of the following dose reduction techniques: Automated exposure control, adjustment of the mA and/or kV according to patient size, and/or use of iterative reconstruction technique. FINDINGS: PULMONARY ARTERIES: Unremarkable. No pulmonary embolism. AORTA: No acute findings. No thoracic aortic aneurysm. LUNGS: Unremarkable. No nodule, mass or pulmonary consolidation. PLEURAL SPACES: Unremarkable. No effusion or pneuomothorax. HEART: Cardiomegaly. No pulmonary vascular congestion apparent. LYMPH NODES: No lymphadenopathy. BONES, CHEST WALL: Old healed right rib fractures evident in the interval. OTHER FINDINGS: Unremarkable. IMPRESSION: Unremarkable CT pulmonary angiogram. No pulmonary embolus. No acute infiltrate, pleural or pericardial effusion or pneumothorax identified. Multiple old, healed right rib fractures evident. Concordant preliminary report from [facility], 03/26/2018.
== END 2018-03-26 20:55 | disposition home or self-care (01) ==
LOC: H.ER 15:54
DX: R07.89 Other chest pain (principal); E78.00 Pure hypercholesterolemia, unspecified; E87.6 Hypokalemia; F32.9 Major depressive disorder, single episode, unspecified; F41.9 Anxiety disorder, unspecified; I10 Essential (primary) hypertension; J44.9 Chronic obstructive pulmonary disease, unspecified; Z79.82 Long term (current) use of aspirin; Z86.73 Personal history of transient ischemic attack (TIA), and cerebral infarction without residual deficits; Z87.891 Personal history of nicotine dependence
CPT/HCPCS: 71046; 71275; 80053; 82948; 83735; 83880; 84100; 84443; 84484; 85025; 85378; 85610; 85730; 86850; 86900; 99283; Q9967

== ENCOUNTER 2018-09-27 21:44 | Emergency (ER) | payer MEDICARE ==
[2018-09-27 21:44] VITALS: BMI 27.4
[2018-09-27 22:04] VITALS: O2SAT 97
[2018-09-27] MEDS ORDERED: Tdap Vaccine 0.5 ml Vial (10-64 yrs) IM ONE (22:23)
[2018-09-27] MEDS: Tdap Vaccine 0.5 ml Vial (10-64 yrs) IM ONE (22:38)
--- NOTE | 2018-09-27 23:34 | ED PDOC ---
Upper Extremity Pain/Injury Time Seen by Provider: 09/27/18 22:10 Chief Complaint (Nursing): Finger,Hand,&Wrist Additional Complaint(s): 82 y/o male with PMH Anxiety, Asthma, COPD, CVA, Depression, HTN, Hypercholesterolemia presents to the ED for evaluation of laceration to right hand 1st digit that occurred 30 min [employer]. Pt was taking out the garbage with his 13 y/o grandson when he hit his right thumb on cement and it began to bleed. Able to control the bleeding at home with pressure. Pt is not exactly sure of the mechanism of injury. Denies numbnes, paresthesias, injury elsewhere. Past Medical History Reviewed: Historical Data, Nursing Documentation, Vital Signs Vital Signs: Last Vital Signs Temp 97.8 F 09/27/18 22:01 Pulse 81 09/27/18 22:01 Resp 16 09/27/18 22:01 BP 111/75 09/27/18 22:01 Pulse Ox 97 09/27/18 22:01 - Medical History PMH: Anxiety, Asthma, COPD, CVA, Depression, HTN, Hypercholesterolemia - Family History Family History: States: Unknown Family Hx - Home Medications Home Medications: Ambulatory Orders Medication Instructions Recorded Albuterol Sulfate 3 ml IH Q4H PRN 12/29/17 Aspirin [Ecotrin] 81 mg PO DAILY 12/29/17 Cyanocobalamin [Vitamin B12 1000 1,000 mcg IM Q30D 12/29/17 mcg/ml Inj] PARoxetine [Paxil] 20 mg PO DAILY 12/29/17 Albuterol/Ipratropium [Duoneb 3 3 ml INH RQ4 #30 neb 01/01/18 mg/0.5 mg (3 ml) UD] Lisinopril/Hydrochlorothiazide 1 tab PO DAILY #30 tablet 01/01/18 [Lisinopril-Hctz 20-25 mg Tab] Metoprolol Succinate XL [Toprol XL] 25 mg PO DAILY #30 tab 01/01/18 Simvastatin [Zocor] 40 mg PO HS #30 tablet 01/01/18 diltiaZEM CD [Cardizem CD] 300 mg PO DAILY #30 cap 01/01/18 Acetaminophen [Tylenol Extra 500 mg PO Q6H PRN #30 tablet 09/28/18 Strength] Cephalexin [Keflex] 500 mg PO Q8H 7 Days #21 capsule 09/28/18 - Allergies Allergies/Adverse Reactions: Allergies Allergy/AdvReac Type Severity Reaction Status Date / Time No Known Allergies Allergy Verified 09/27/18 22:04 Review of Systems ROS Statement: Except As Marked, All Systems Reviewed And Found Negative Constitutional: Negative for: Fever, Chills Cardiovascular: Negative for: Chest Pain, Palpitations Respiratory: Negative for: Cough, Shortness of Breath Gastrointestinal: Negative for: Nausea, Vomiting, Abdominal Pain Skin: Positive for: Other (laceration to right hand, dorsal 1st digit) Physical Exam - Reviewed Nursing Documentation Reviewed: Yes Vital Signs Reviewed: Yes - Physical Exam Appears: Positive for: Well, Non-toxic, No Acute Distress Head Exam: Positive for: ATRAUMATIC, NORMAL INSPECTION, NORMOCEPHALIC Skin: Negative for: Normal Color (laceration to right hand, dorsal 1st digit distal phalanx. Nail bed intact but detached from overlying skin.) Cardiovascular/Chest: Positive for: Regular Rate, Rhythm Respiratory: Positive for: CNT, Normal Breath Sounds Pulses-Radial (L): 2+ Pulses-Radial (R): 2+ Extremity: Positive for: Normal ROM, Tenderness (over laceration right hand, dorsal 1st digit), Capillary Refill (<2s), Other (full strength, sensation intact). Negative for: Deformity, Swelling Neurologic/Psych: Positive for: Alert, Oriented, Gait (steady) - ECG O2 Sat by Pulse Oximetry: 97 Medical Decision Making Medical Decision Making: Initial Plan: * Tetanus * Right hand XR * Consult Hand Pt seen and evaluated by Dr. Woodruff at bedside. XR read by me and Dr. Woodruff, 11:45 1st call put out to kasey Berger 12:23 2nd call put out to kasey Berger 12:53 3rd call put out to kasey Berger. 1:[address] Clifford, advised to repair skin, give Keflex, and have pt to followup in office on Tuesday Disposition - Clinical Impression Clinical Impression: Open fracture of phalanx of digit of hand - Disposition Referrals: Cesar Clifford MD [Medical Doctor] - Disposition: Routine/Home Disposition Time: 01:00 Condition: IMPROVED Additional Instructions: Keep wound clean, dry, and covered; no soaking; no heavy lifting Take Keflex three times daily for [address] Clifford on Tuesday, call tomorrow for appointment Return to ER for any new/worsening symptoms Prescriptions: Acetaminophen [Tylenol Extra Strength] 500 mg PO Q6H PRN #30 tablet PRN Reason: Pain, Moderate (4-7) Cephalexin [Keflex] 500 mg PO Q8H 7 Days #21 capsule Instructions: Wound Care (DC) Forms: [facility] (Divehi)
[2018-09-28] MEDS: Lidocaine 1% Inj (20ml) IJ ONE (02:24)
[2018-09-28 03:34] VITALS: BP 122/82; PULSE 84; RESP 18; TEMP 98
--- NOTE | 2018-09-28 09:58 | RAD ---
Date of service: 09/27/2018 PROCEDURE: Right Thumb radiographs. HISTORY: r/o fracture, thumb laceration COMPARISON: None. TECHNIQUE: AP radiograph of the right hand, as well as spot oblique and lateral images of thumb were obtained. FINDINGS: RIGHT THUMB: Comminuted minimally displaced fracture base of 1st distal phalanx. There is intra-articular extension noted. No other fracture identified. Remainder of the right hand (as seen on the AP view) grossly unremarkable. JOINTS: Normal. SOFT TISSUES: Normal. OTHER FINDINGS: None. IMPRESSION: Comminuted intra-articular minimally displaced fracture base of 1st distal phalanx.
== END 2018-09-28 02:25 | disposition home or self-care (01) ==
LOC: H.ER 21:44
DX: S62.501A Fracture of unspecified phalanx of right thumb, initial encounter for closed fracture (principal); W22.8XXA Striking against or struck by other objects, initial encounter; Y92.89 Other specified places as the place of occurrence of the external cause

== ENCOUNTER 2019-01-14 18:23 | Emergency (ER) | payer MEDICARE ==
[2019-01-14 18:23] VITALS: BMI 27.4
[2019-01-14 18:32] VITALS: RESP 18
[2019-01-14] MEDS ORDERED: Sodium Chloride 0.9% 500 ML IV STA (18:39)
--- NOTE | 2019-01-14 18:52 | ED PDOC ---
HPI: Trauma/Fall - HPI Time Seen by Provider: 01/14/19 18:30 Chief Complaint (Nursing): Trauma Chief Complaint (Provider): Trauma History Per: Patient History/Exam Limitations: no limitations Injury Occurred (Timing): Just Before Arrival Additional History Per: Family Additional Complaint(s): 83 year old male with pmhx of a CVA presents to the ED via EMS with family s/p accidentally falling down seven stairs while going to work on his basement. As per pt's daughter, he lost consciousness for approximately five minutes, but then came to. He is complaining of a head injury, neck pain, dizziness, and right sided flank, arm, and lower back pain. Daughter additionally notes since patient's CVA, he has chronic right sided weakness, but he otherwise denies left sided weakness, numbness in extremities, leg pain, tingling, vision changes, lev st pain, shortness of breath, fever, chills, and any dizziness before the fall. PMD: Bk Welch Past Medical History Reviewed: Historical Data, Nursing Documentation, Vital Signs Vital Signs: Last Vital Signs Temp 97.2 F L 01/14/19 18:30 Pulse 78 01/14/19 18:30 Resp 18 01/14/19 18:30 BP 112/70 01/14/19 18:30 Pulse Ox 99 01/14/19 18:30 - Medical History PMH: Anxiety, Asthma, COPD, CVA, Depression, HTN, Hypercholesterolemia - Surgical History Surgical History: No Surg Hx - Family History Family History: States: Unknown Family Hx - Home Medications Home Medications: Ambulatory Orders Medication Instructions Recorded Albuterol Sulfate 3 ml IH Q4H PRN 12/29/17 Aspirin [Ecotrin] 81 mg PO DAILY 12/29/17 Cyanocobalamin [Vitamin B12 1000 1,000 mcg IM Q30D 12/29/17 mcg/ml Inj] PARoxetine [Paxil] 20 mg PO DAILY 12/29/17 Albuterol/Ipratropium [Duoneb 3 3 ml INH RQ4 #30 neb 01/01/18 mg/0.5 mg (3 ml) UD] Lisinopril/Hydrochlorothiazide 1 tab PO DAILY #30 tablet 01/01/18 [Lisinopril-Hctz 20-25 mg Tab] Metoprolol Succinate XL [Toprol XL] 25 mg PO DAILY #30 tab 02/11/18 Simvastatin [Zocor] 40 mg PO HS #30 tablet 01/01/18 diltiaZEM CD [Cardizem CD] 300 mg PO DAILY #30 cap 01/01/18 Acetaminophen [Tylenol Extra 500 mg PO Q6H PRN #30 tablet 09/28/18 Strength] Cephalexin [Keflex] 500 mg PO Q8H 7 Days #21 capsule 09/28/18 Ibuprofen [Motrin] 600 mg PO TID 7 Days tab 01/14/19 Lidocaine 5% [Lidoderm] 1 ea TD DAILY PRN #5 patch 01/14/19 - Allergies Allergies/Adverse Reactions: Allergies Allergy/AdvReac Type Severity Reaction Status Date / Time No Known Allergies Allergy Verified 01/14/19 18:28 Review of Systems ROS Statement: Except As Marked, All Systems Reviewed And Found Negative Constitutional: Positive for: Other (head injury). Negative for: Fever, Chills Eyes: Negative for: Vision Change Cardiovascular: Negative for: Chest Pain Respiratory: Negative for: Shortness of Breath Gastrointestinal: Positive for: Abdominal Pain (right flank) Musculoskeletal: Positive for: Neck Pain, Arm Pain (right), Back Pain (right lower). Negative for: Leg Pain Neurological: Positive for: Weakness (right sided; no left sided weakness), Dizziness (post-fall), Other (loss of consciousness). Negative for: Numbness (or tingling) Physical Exam - Reviewed Nursing Documentation Reviewed: Yes Vital Signs Reviewed: Yes - Physical Exam Appears: Positive for: No Acute Distress Head Exam: Negative for: ATRAUMATIC (right upper head hematoma) Skin: Positive for: Normal Color, Warm Eye Exam: Positive for: Normal appearance Neck: Positive for: Pain On Movement Of Neck (diffuse tenderness to entire neck) Cardiovascular/Chest: Positive for: Regular Rate, Rhythm Respiratory: Positive for: Normal Breath Sounds. Negative for: Accessory Muscle Use, Respiratory Distress Gastrointestinal/Abdominal: Positive for: Soft, Tenderness (right flank, right rib, and right lateral abdominal tenderness to palpation) Extremity: Positive for: Normal ROM (to bilateral upper and lower extremities), Other (abrasion noted to right lateral elbow, non-tender). Negative for: Tenderness, Deformity Neurologic/Psych: Positive for: Alert, Oriented (x3). Negative for: Shy r/Sensory Deficits - Laboratory Results Result Diagrams: 01/14/19 18:54 01/14/19 18:54 Lab Results: bun and cr similar to old; 3.2 k - ECG O2 Sat by Pulse Oximetry: 99 (RA) Pulse Ox Interpretation: Normal - CT Scan/US ct Other Rad Studies (CT/US): Read By Radiologist Other Rad Interpretation: 1 rib fx - Progress ED Course And Treament: 2310: Stable. AAOx3. Pain free. Tolerated PO. Fu with pcp. Ambulated with no issues. Medical Decision Making Medical Decision Making: Time: 1836 Initial Impression: injuries s/p slip and fall Initial Plan: --CT C-spine w/o contrast --CT head w/o contrast --CT chest, abd, pelvis w/ IV contrast --EKG --BMP --Trop I --CBC with differential --CXR --Normal saline IV --Tylenol 975mg PO Scribe Attestation: Documented by Marla Lisa, acting as a scribe for Tong Charles MD. Provider Scribe Attestation: All medical record entries made by the Scribe were at my direction and personally dictated by me. I have reviewed the chart and agree that the record a ccurately reflects my personal performance of the history, physical exam, medical decision making, and the department course for this patient. I have also personally directed, reviewed, and agree with the discharge instructions and disposition. Disposition - Clinical Impression Clinical Impression: Hypokalemia, Rib fracture, Head injury - Patient ED Disposition Is Patient to be Admitted: No Counseled Patient/Family Regarding: Studies Performed, Diagnosis, Need For Followup, Rx Given - Disposition Referrals: [facility] [Outside] - 01/15/19 Disposition: Routine/Home Disposition Time: 20:45 Condition: STABLE Additional Instructions: Return if not better in 3 days. Prescriptions: Ibuprofen [Motrin] 600 mg PO TID 7 Days tab Lidocaine 5% [Lidoderm] 1 ea TD DAILY PRN #5 patch PRN Reason: Pain, Moderate (4-7) Instructions: Rib Fractures in Adults, Closed Head Injury, Hypokalemia (DC) Print Language: CROATIAN
[2019-01-14 18:59] LABS: BASO # 0.1 K/uL (0.0-0.2); BASO % 0.8 % (0.0-2.0); EOS # 0.2 K/uL (0.0-0.7); EOS % 1.8 % (0.0-4.0); HEMOGLOBIN 13.2 g/dL (12.0-18.0); LYMPH # 2.7 K/uL (1.0-4.3); LYMPH % 26.9 % (20.0-40.0); MEAN CELL VOLUME 90.6 fl (80.0-94.0); MEAN CORPUSCULAR HEMOGLOBIN 30.3 pg (27.0-31.0); MEAN CORPUSCULAR HGB CONC 33.4 g/dL (33.0-37.0); MEAN PLATELET VOLUME 8.1 fl (7.2-11.7); MONO # 0.8 K/uL (0.0-0.8); MONO % 7.5 % (0.0-10.0); NEUT # 6.3 K/uL (1.8-7.0); NRBC % 0.1 % (0.0-0.0); RBC 4.36 Mil/uL (4.40-5.90); RED CELL DISTRIBUTION WIDTH 14.5 % (11.5-14.5); WHITE BLOOD COUNT 10.1 K/uL (4.8-10.8)
[2019-01-14 19:08] LABS: BLOOD UREA NITROGEN 29 mg/dl (9-20); CALCIUM 8.9 mg/dL (8.4-10.2); GFR NON-AFRICAN AMERICAN 36
[2019-01-14] MEDS ORDERED: Potassium Chloride 20 mEq ER Tab PO STA (21:35)
[2019-01-14] MEDS ORDERED: Potassium Chloride 20 mEq ER Tab PO ONE (22:00)
[2019-01-14] MEDS ORDERED: Lidocaine 5% Patch TD STA (23:12)
[2019-01-14] MEDS ORDERED: Lidocaine 5% Patch TD ONE (23:33)
[2019-01-14 23:53] VITALS: BP 150/80; PULSE 95; TEMP 99.6; O2SAT 95
--- NOTE | 2019-01-15 09:07 | CARD ---
APPROVED REPORT Date of service: 01/14/2019 EKG Measurement Heart [id number] <Conclusion> Sinus rhythm with 1st degree AV block Left axis deviation Minimal voltage criteria for LVH, may be normal variant Abnormal ECG
--- NOTE | 2019-01-15 10:51 | RAD ---
Date of service: 01/14/2019 HISTORY: dyspnea COMPARISON: Chest radiographs 03/26/2018. FINDINGS: Diminished inspiratory volume. LUNGS: No active pulmonary disease. PLEURA: No significant pleural effusion identified, no pneumothorax apparent. CARDIOVASCULAR: Calcific atherosclerotic changes are seen related to the thoracic aorta. Normal cardiac size. No pulmonary vascular congestion. OSSEOUS STRUCTURES: No significant abnormalities. VISUALIZED UPPER ABDOMEN: Normal. OTHER FINDINGS: None. IMPRESSION: No acute infiltrate or pleural effusion. No pulmonary vascular congestion. Diminished inspiratory volume noted.
--- NOTE | 2019-01-15 12:12 | CT ---
Date of service: 01/14/2019 PROCEDURE: CT HEAD WITHOUT CONTRAST. HISTORY: headache COMPARISON: 01/25/2017. TECHNIQUE: Axial computed tomography images were obtained through the head/brain without intravenous contrast. Supplemental Coronal and Sagittal projections created and reviewed. Radiation dose: Total exam DLP = 1615.96 mGy-cm. This CT exam was performed using one or more of the following dose reduction techniques: Automated exposure control, adjustment of the mA and/or kV according to patient size, and/or use of iterative reconstruction technique. FINDINGS: HEMORRHAGE: No intracranial hemorrhage. BRAIN: No mass effect or edema. Cortical and cerebellar atrophy, periventricular small vessel disease. Old thalamic infarct on the left. Physiological basal ganglia calcifications again identified. VENTRICLES: Unremarkable. No hydrocephalus. CALVARIUM: Unremarkable. PARANASAL SINUSES: Unremarkable as visualized. No significant inflammatory changes. MASTOID AIR CELLS: Unremarkable as visualized. No inflammatory changes. OTHER FINDINGS: None. IMPRESSION: No acute intracranial abnormalities. No significant findings to account for the clinical presentation. No significant interval change compared to the prior examination(s). Concordant results (preliminary interpretation) provided by [facility]. Procedure Completed: 20:21. Preliminary Report: Interpreted and electronically signed: 20:46. Final Interpretation: 12:07. January 15, 2019
--- NOTE | 2019-01-15 12:15 | CT ---
Date of service: 01/14/2019 PROCEDURE: CT Cervical Spine without contrast HISTORY: Posttraumatic neck pain. COMPARISON: 01/25/2017. CT cervical spine. TECHNIQUE: Axial computed tomography images were obtained of the cervical spine without the use of intravenous contrast. Coronal and sagittal reformatted images were created and reviewed. Radiation dose: Total exam DLP = 361.15 mGy-cm. This CT exam was performed using one or more of the following dose reduction techniques: Automated exposure control, adjustment of the mA and/or kV according to patient size, and/or use of iterative reconstruction technique. FINDINGS: VERTEBRAE: No fracture. Normal alignment. No destructive bony lesion. DISCS/SPINAL CANAL/NEURAL FORAMINA: No significant central canal or neural foraminal stenosis. Disc degenerative changes including disc space narrowing lower cervical spine C5-6 and C6-7 with anterior non marginal osteophyte formation. Similar less pronounced changes C3-4. Multilevel facet arthropathy noted. PARASPINAL SOFT TISSUES: Unremarkable. OTHER FINDINGS: None. IMPRESSION: No acute or significant findings related to/ accounting for the clinical presentation. Additional benign and/or incidental findings described above. Stable cervical spondylosis. No significant interval change compared to the prior examination(s). Concordant results (preliminary interpretation) provided by [email or web address]. Procedure Completed: 20:24. Preliminary Report: Interpreted and electronically signed: 20:53. Final Interpretation: 12:12. January 15, 2019
--- NOTE | 2019-01-15 12:27 | CT ---
Date of service: 01/14/2019 PROCEDURE: CT Chest, Abdomen and Pelvis without intravenous contrast HISTORY: Posttraumatic left-sided pain. COMPARISON: 03/26/2018. CT thorax. 07/01/2015 MRI abdomen TECHNIQUE: Radiation dose: Total exam DLP = 825.26 mGy-cm. This CT exam was performed using one or more of the following dose reduction techniques: Automated exposure control, adjustment of the mA and/or kV according to patient size, and/or use of iterative reconstruction technique. FINDINGS: CT CHEST WITHOUT CONTRAST: LUNGS: Dependent mild and symmetrical atelectasis limited to both lower lobes. MEDIASTINUM: Unremarkable. Normal caliber aorta and pulmonary arterial trunk. Normal size heart. Atherosclerotic calcification and mural plaque present. Findings are seen throughout the aorta primarily in the aortic arch. LYMPH NODES: Unremarkable. PLEURA: Unremarkable. No pneumothorax. No pleural fluid. BONES: Acute posterolateral right 8th rib fracture.The finding is marked on the study for review. Axial series 4/image 57. Healed lateral 8th rib fracture. OTHER FINDINGS: None. CT ABDOMEN AND PELVIS: LIVER: Unremarkable. No gross lesion or ductal dilatation. GALLBLADDER AND BILE DUCTS: Unremarkable. PANCREAS: Unremarkable. No gross lesion or ductal dilatation. SPLEEN: Unremarkable. ADRENALS: Unremarkable. No mass. KIDNEYS AND URETERS: Unremarkable. No hydronephrosis. No solid mass. Incidental finding(s): 2.7 cm cyst upper pole left kidney. VASCULATURE: Atherosclerotic calcification and mural plaque present. Findings are seen throughout the aorta and extending into the iliac vessels. Unremarkable. No aortic aneurysm. BOWEL: Unremarkable. No obstruction. No gross mural thickening. APPENDIX: A normal appendix is visualized in it's entirety. PERITONEUM: Unremarkable. No free fluid. No free air. LYMPH NODES: Unremarkable. No enlarged lymph nodes. BLADDER: Unremarkable. 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 BONES: No acute fracture. Grade 2 anterolisthesis L5-S1. Findings are seen with associated pars defects. OTHER FINDINGS: None. IMPRESSION: Acute fracture posterior lateral right 8th rib Old healed 8th rib fracture. Atelectatic changes primarily affecting lower lobes. Additional benign and/or incidental findings described above. Concordant results (preliminary interpretation) provided by [facility]. Procedure Completed: 20:31. Preliminary Report: Interpreted and electronically signed: 09:40. Final Interpretation: 12:23. January 15, 2019
== END 2019-01-14 23:50 | disposition home or self-care (01) ==
LOC: H.ER 18:23
DX: S09.90XA Unspecified injury of head, initial encounter (principal); E87.6 Hypokalemia; S22.39XA Fracture of one rib, unspecified side, initial encounter for closed fracture; W10.9XXA Fall (on) (from) unspecified stairs and steps, initial encounter; I10 Essential (primary) hypertension; Z86.59 Personal history of other mental and behavioral disorders; J44.9 Chronic obstructive pulmonary disease, unspecified; Z86.73 Personal history of transient ischemic attack (TIA), and cerebral infarction without residual deficits
CPT/HCPCS: 70450; 71045; 71250; 72125; 74176; 80048; 84484; 85025; 93005; 99285; J7040